=== PATIENT | male | born 2000 | race Caucasian/White ===

== ENCOUNTER 2022-12-20 18:11 | Emergency (ER) | payer OTHER, SELFPAY ==
[2022-12-20 18:26] VITALS: BP 125/90; PULSE 87; RESP 20; TEMP 37.4; O2SAT 98; BMI 23.6
--- NOTE | 2022-12-20 18:35 | CRLHL7_ITS ---
For Patients: As a result of the Century Cures Act, medical imaging exams and procedure reports are released immediately into your electronic medical record. You may view this report before your referring provider. If you have questions, please contact your health care provider. INDICATION: Tonsillitis. Swelling. TECHNIQUE: CT of the neck soft tissues performed with IV contrast. Contrast: 79 cc Isovue 370 COMPARISON: None available at this institution. FINDINGS: Significant symmetric enlargement of the palatine tonsils and adenoids. Internal heterogeneous enhancement without defined drainable fluid collection. There is moderate mass effect upon the upper airway. Extensive bulky bilateral cervical chain lymphadenopathy. Largest lymph node on the right measures 2.9 cm. Largest lymph node on the left measures 2.3 cm. The parotid and submandibular glands appear unremarkable. The thyroid gland is normal. The visualized major vascular structures appear intact. The visualized intracranial components appear grossly intact. Visualized orbits and contents appear unremarkable. The paranasal sinuses are clear as visualized. Lung apices are clear. Mild reversal of the cervical lordosis. IMPRESSION: 1. Tonsillitis, without drainable fluid collection. Moderate mass effect upon the upper airway. 2. Extensive cervical chain lymphadenopathy, presumed reactive. Infectious mononucleosis should be considered. Please note that all CT scans at this facility use dose modulation, iterative reconstruction, and/or weight-based dosing when appropriate to reduce radiation dose to as low as reasonably achievable. Dictated by Justin Alcocer MD @ 12/20/2022 9:06:25 PM (Electronically Signed)
[2022-12-20] MEDS: 0.9 % SODIUM CHLORIDE 1000 ml 1,000 ML IV (19:05)
--- NOTE | 2022-12-20 19:51 | ED_ITS ---
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 Yesterday was seen and had a positive strep test and was started on antibiotics. History old maybe is a little more sore today, but he does feel like his voice is more muffled any became concerned about the possibility of a peritonsillar abscess. He has not run fevers, he is able to swallow secretions, breathing without difficulty. General health is good, no allergies. Maybe feels a little dehydrated. Related Data Allergies Allergy/AdvReac Type Severity Reaction Status Date / Time No Known Drug Allergies Allergy Verified 12/20/22 19:42 Review of Systems Status of ROS: Reports: 6 or more systems reviewed and unremarkable except as noted in History and below Exam Narrative: Exam Narrative: Vital signs as noted above. In general, an alert, nontoxic young man. Voice is somewhat hot potato in quality. Head: Normocephalic, atraumatic. Eyes: Pupils are equal reactive. Extraocular movements are full. Conjunctivae are normal. ENT: Mucous membranes are moist. He has large exudate of tonsils which touch in the middle, palate is mildly edematous, airway is patent. There is no asymmetry noted however. Neck: Supple without lymphadenopathy. He has adenopathy noted particularly on the right. No stridor. Heart: Regular rate and rhythm. No murmur or rub. Lungs: Clear bilaterally. No increased work of breathing, crackles or wheezes. Abdomen: Soft and nontender. No organomegaly. Extremities: Well perfused. No edema. No calf tenderness. Pulses intact. Neurologic: Patient is alert and oriented to person and place. Speech is fluent. Face is symmetric. Moves all extremities equally. Affect: Normal. Skin: Warm and dry. Well perfused. Const: Vital Signs, click to edit/add: Vital Signs - 24 hr 12/20/22 18:26 Temperature 99.3 F Pulse Rate [Pulse Oximeter] 87 Respiratory Rate 20 Blood Pressure [Ri ght Upper Arm] 125/90 H Pulse Oximetry 98 Oxygen Delivery Me thod Room Air Documenting provider has reviewed patient's vital signs: yes Course Course Hospital Course: Patient clearly has significant tonsillitis, but I do not see significant asymmetry to suggest abscess clearly. However, given the quality of his voice and significant tonsillar size, I am going to get a CT scan just to make sure that there is nothing developing. In the meantime, I have had an IV placed and will give him some normal saline. He declines the need for anything at this time for pain. I am going to give him some Solu-Medrol to perhaps help with the amount of inflammation and swelling he has. CT scan by my review showed significantly enlarged tonsils he has adenopathy, he does have just a speck of perhaps low-attenuation behind the left tonsil which may be a little bit of fluid but certainly nothing that needs to be drained. Final radiology report is as follows:IMPRESSION: 1. Tonsillitis, without drainable fluid collection. Moderate mass effect upon the upper airway. 2. Extensive cervical chain lymphadenopathy, presumed reactive. Infectious mononucleosis should be considered. I did consider a diagnosis of mono in him given the appearance of his tonsils and significant adenopathy however he has only been sick for a couple of days and I think testing now is probably not worth it from a clinical standpoint. It is of minimal reliability and is not going to change our management. I did discuss this diagnostic possibility with him. He has had mono before. He was prescribed penicillin a couple of days ago and I think based on the appearance of his CT scan I am going to broaden him to Augmentin. Discussed what to watch for in terms of worsening symptoms, return if he develops more significant pain particularly if it is unilateral, high fevers, inability to swallow secretions. Continue with ibuprofen or Tylenol. If in 7-10 days he is not significantly improved then testing from a at that time might be reasonable. Vital Signs Vital signs: Initial Vital Signs Respiratory Effort Spontaneous 12/20/22 18:24 Respiratory Depth Normal 12/20/22 18:24 Respiratory Pattern 12/20/22 18:24 Vital Signs Temperature 99.3 F 12/20/22 18:26 Pulse Rate 87 12/20/22 18:26 Respiratory Rate 20 12/20/22 18:26 Blood Pressure 125/90 H 12/20/22 18:26 Pulse Oximetry 98 12/20/22 18:26 Oxygen Delivery Method 12/20/22 18:26 Temperature 99.3 F 12/20/22 18:26 Pulse Rate 87 12/20/22 18:26 Respiratory Rate 20 12/20/22 18:26 Blood Pressure 125/90 H 12/20/22 18:26 Pulse Oximetry 98 12/20/22 18:26 Oxygen Delivery Method 12/20/22 18:26 Discharge Plan Discharge Clinical Impression: Acute tonsillitis Patient Disposition: Home, Self-Care Condition: Improved Instructions: Tonsillitis (ED) Additional Instructions: Continue antibiotics, prednisone as prescribed (start tomorrow), ibuprofen and/or Tylenol as needed. If you have worsening pain, particularly if it is unilateral, develop fevers, inability to swallow secretions, return for re- evaluation. Sometimes very significant tonsillitis and swollen nodes like you have can be caused by Ebstein Campos virus/mononucleosis. Despite the positive strep test, if you are not improving over the next few days to week, this is a consideration. The test for this is typically more reliable after you been sick for 7-10 days, so this is something you could be tested for if you are not impr oving as quickly as we would expect with just strep throat. Follow Up/Referrals: Provider,Not a Local [Primary Care Provider] - Stand Alone Forms: [employer] Info Instructions
[2022-12-20] MEDS: METHYLPREDNISOLONE SOD SUCC 62.5 MG/ML (125) 125 MG IVP (20:07)
[2022-12-20] MEDS: KETOROLAC 15 MG/ML inj IVP (21:08)
[2022-12-20 21:10] VITALS: BP 140/80; PULSE 95; RESP 18; O2SAT 96
== END 2022-12-20 21:50 | disposition home or self-care (01) ==
PROVIDERS: Emergency Provider Emergency Medicine
DX: J03.90 Acute tonsillitis, unspecified (principal)
CPT/HCPCS: 70491; 96374; 96375; 99284; J1885; J2930; J7030; Q9967